=== PATIENT | female | born 1945 | race Caucasian/White ===

== ENCOUNTER 2016-06-03 11:10 | Inpatient (IN) | payer MEDICARE, BC ==
[~2016-06-03] VITALS: Ht 170.2 cm; Wt 80.8 kg
[2016-06-03] MEDS ORDERED: ASPIRIN 81 MG CHEW TAB ONE (11:32)
[2016-06-03] MEDS ORDERED: ONDANSETRON 4 MG VIAL ONE (11:32)
[2016-06-03] MEDS ORDERED: ALU/MAG/SIM 30 ML UDC ONE (11:32)
[2016-06-03] MEDS ORDERED: SODIUM CHLORIDE 0.9% 1,000 ML ONE (11:33)
[2016-06-03] MEDS ORDERED: LIDOCAINE 2% VISC 15 ML UDC ONE (11:33)
[2016-06-03] MEDS ORDERED: DILAUDID 1 MG/ML AMP ONE ×3 (11:33→16:38)
[2016-06-03] MEDS ORDERED: ASPIRIN 81 MG CHEW TAB PO STA (14:33)
[2016-06-03] MEDS ORDERED: ACETAMINOPHEN 325 MG TAB PO PRN (14:35)
[2016-06-03] MEDS ORDERED: SALINE FLUSH 10 ML FLUSH PRN (14:35)
[2016-06-03] MEDS ORDERED: ALU/MAG/SIM 30 ML UDC PO PRN (14:35)
[2016-06-03] MEDS ORDERED: LORAZEPAM 0.5 MG TAB PO PRN (14:35)
[2016-06-03] MEDS ORDERED: DOCUSATE SOD 100 MG CAP PO PRN (14:35)
[2016-06-03 17:42] VITALS: BP_SYST 100; BP_SYST 98; RESP 16; TEMP 97.5
[2016-06-03 18:20] VITALS: Ht 170.2 cm; Wt 80.8 kg
[2016-06-03] MEDS ORDERED: ONDANSETRON 4 MG TAB PO PRN (18:35)
[2016-06-03] MEDS ORDERED: PROCHLORPERAZINE 5 MG TAB PO PRN (18:35)
[2016-06-03 20:05] VITALS: BP_SYST 87; BP_SYST 90; RESP 16
[2016-06-03 20:06] VITALS: TEMP 97.9
[2016-06-03] MEDS: SALINE FLUSH 10 ML FLUSH SCH (20:25)
[2016-06-03] MEDS: SERTRALINE 50 MG TAB PO SCH (20:25)
[2016-06-03] MEDS: Atorvastatin 20 MG TAB PO SCH (20:25)
[2016-06-03] MEDS: ALLOPURINOL 100 MG TAB PO SCH (20:25)
[2016-06-03] MEDS: SODIUM CHLORIDE 0.9% 1,000 ML IV SCH (21:51)
[2016-06-03] MEDS: MORPHINE 2 MG/ML SYR IV PRN (21:56)
[2016-06-03 23:22] VITALS: BP_SYST 96; RESP 16; TEMP 98.4
[2016-06-04] VITALS (10 sets, daily range): BP systolic 93–114; RESP 18–20; TEMP 97.6–100.4
[2016-06-04] MEDS: MORPHINE 2 MG/ML SYR IV PRN ×4 (02:17→19:51)
[2016-06-04] MEDS: SODIUM CHLORIDE 0.9% FLUSH BAG 500 ML IV SCH ×2 (06:00→19:31)
[2016-06-04] MEDS: SODIUM CHLORIDE 0.9% 1,000 ML IV SCH (06:33)
[2016-06-04] MEDS: PANTOPRAZOLE 40 MG TAB PO SCH (06:33)
[2016-06-04] MEDS: LEVOTHYROXINE 0.15 MG TAB PO SCH (06:33)
[2016-06-04] MEDS: ONDANSETRON 4 MG VIAL IV PRN ×2 (06:45→08:43)
[2016-06-04] MEDS: CEFTRIAXONE 2 GM in SODIUM CHLORIDE 0.9% 50 ML IV SCH (08:44)
[2016-06-04] MEDS: SOLIFENACIN 5 MG TAB PO SCH (08:45)
[2016-06-04] MEDS: ALLOPURINOL 100 MG TAB PO SCH ×2 (08:46→20:56)
[2016-06-04] MEDS: ASPIRIN 81 MG CHEW TAB PO SCH (08:46)
[2016-06-04] MEDS: SERTRALINE 50 MG TAB PO SCH ×2 (08:46→20:56)
[2016-06-04] MEDS: SALINE FLUSH 10 ML FLUSH SCH ×2 (08:46→20:00)
[2016-06-04] MEDS ORDERED: PROMETHAZINE 25 MG/ML VIAL IV PRN (10:20)
[2016-06-05] VITALS (12 sets, daily range): BP systolic 90–123; RESP 18–20; TEMP 97.6–100.2
[2016-06-05] MEDS: SODIUM CHLORIDE 0.9% FLUSH BAG 500 ML IV SCH (06:00)
[2016-06-05] MEDS: PANTOPRAZOLE 40 MG TAB PO SCH (06:37)
[2016-06-05] MEDS: LEVOTHYROXINE 0.15 MG TAB PO SCH (06:37)
[2016-06-05] MEDS: SALINE FLUSH 10 ML FLUSH SCH ×2 (08:00→21:56)
[2016-06-05] MEDS ORDERED: SODIUM CHLORIDE 0.9% 250 ML IV ONE (08:25)
[2016-06-05] MEDS ORDERED: MISSING DOSE XX ONE (09:35)
[2016-06-05] MEDS: SERTRALINE 50 MG TAB PO SCH ×2 (09:38→21:56)
[2016-06-05] MEDS: CEFTRIAXONE 2 GM in SODIUM CHLORIDE 0.9% 50 ML IV SCH (09:38)
[2016-06-05] MEDS: SOLIFENACIN 5 MG TAB PO SCH (09:38)
[2016-06-05] MEDS: ALLOPURINOL 100 MG TAB PO SCH ×2 (09:38→21:56)
[2016-06-05] MEDS: ASPIRIN 81 MG CHEW TAB PO SCH (10:34)
[2016-06-05] MEDS: ONDANSETRON 4 MG VIAL IV PRN (10:34)
[2016-06-05] MEDS: NYSTATIN SUSP FOR CPD 120 ML, DIPHENHYDRAMINE (FOR COMPOUND) 120 ML, HYDROCORT SOD SUC ... SWISH.SWAL SCH ×9 (13:00→21:00)
[2016-06-05] MEDS ORDERED: PHARMACY TO DOSE VANCOMYCIN IV SCH (21:55)
[2016-06-05] MEDS ORDERED: PHARMACY TO DOSE CEFEPIME IV SCH (21:55)
[2016-06-05] MEDS: SODIUM CHLORIDE 0.9% 1,000 ML IV SCH (21:55)
[2016-06-05] MEDS: Atorvastatin 20 MG TAB PO SCH (21:56)
[2016-06-05] MEDS ORDERED: VANCOMYCIN 1,500 MG in SODIUM CHLORIDE 0.9% 250 ML IV ONE (22:10)
[2016-06-05] MEDS ORDERED: CEFEPIME 2000 MG/100 ML D5W 100 ML IV SCH (23:00)
[2016-06-06] VITALS (13 sets, daily range): BP systolic 100–118; RESP 18–24; TEMP 96.4–98.9
[2016-06-06] MEDS: SODIUM CHLORIDE 0.9% FLUSH BAG 500 ML IV SCH ×2 (03:42)
[2016-06-06] MEDS: PANTOPRAZOLE 40 MG TAB PO SCH (06:41)
[2016-06-06] MEDS: LEVOTHYROXINE 0.15 MG TAB PO SCH (06:41)
[2016-06-06] MEDS: ONDANSETRON 4 MG VIAL IV PRN ×2 (07:54→16:41)
[2016-06-06] MEDS: SALINE FLUSH 10 ML FLUSH SCH ×2 (08:32→20:00)
[2016-06-06] MEDS: ALLOPURINOL 100 MG TAB PO SCH ×2 (08:33→20:11)
[2016-06-06] MEDS: SOLIFENACIN 5 MG TAB PO SCH (08:33)
[2016-06-06] MEDS: SERTRALINE 50 MG TAB PO SCH ×2 (08:33→20:11)
[2016-06-06] MEDS: CEFEPIME 2000 MG/100 ML D5W 100 ML IV SCH ×2 (08:33→20:11)
[2016-06-06] MEDS: NYSTATIN SUSP FOR CPD 120 ML, DIPHENHYDRAMINE (FOR COMPOUND) 120 ML, HYDROCORT SOD SUC ... SWISH.SWAL SCH ×12 (08:34→20:11)
[2016-06-06] MEDS: SODIUM CHLORIDE 0.9% 1,000 ML IV SCH ×2 (10:31→21:51)
[2016-06-06] MEDS: VANCOMYCIN 1,250 MG in SODIUM CHLORIDE 0.9% 250 ML IV SCH (23:01)
[2016-06-07] VITALS (12 sets, daily range): BP systolic 112–156; RESP 16–20; TEMP 96.9–98.7
[2016-06-07] MEDS: SODIUM CHLORIDE 0.9% FLUSH BAG 500 ML IV SCH ×2 (05:55→05:56)
[2016-06-07] MEDS: PANTOPRAZOLE 40 MG TAB PO SCH (05:58)
[2016-06-07] MEDS: LEVOTHYROXINE 0.15 MG TAB PO SCH (05:58)
[2016-06-07] MEDS: SALINE FLUSH 10 ML FLUSH SCH ×2 (08:00→22:05)
[2016-06-07] MEDS ORDERED: SODIUM CHLORIDE 0.9% 1,000 ML IV SCH (08:05)
[2016-06-07] MEDS: NYSTATIN SUSP FOR CPD 120 ML, DIPHENHYDRAMINE (FOR COMPOUND) 120 ML, HYDROCORT SOD SUC ... SWISH.SWAL SCH ×12 (08:17→22:04)
[2016-06-07] MEDS: SERTRALINE 50 MG TAB PO SCH ×2 (08:17→22:05)
[2016-06-07] MEDS: SOLIFENACIN 5 MG TAB PO SCH (08:17)
[2016-06-07] MEDS: CEFEPIME 2000 MG/100 ML D5W 100 ML IV SCH ×2 (08:18→22:04)
[2016-06-07] MEDS: ALLOPURINOL 100 MG TAB PO SCH ×2 (08:18→22:10)
[2016-06-07] MEDS: METOPROLOL XL 25 MG TAB PO SCH (10:34)
[2016-06-07] MEDS ORDERED: Furosemide 20 MG TAB PO ONE (19:05)
[2016-06-07] MEDS: Atorvastatin 20 MG TAB PO SCH (22:05)
[2016-06-07] MEDS: VANCOMYCIN 1,250 MG in SODIUM CHLORIDE 0.9% 250 ML IV SCH (23:26)
[2016-06-08] VITALS (7 sets, daily range): BP systolic 115–136; RESP 16–20; TEMP 96.8–98.5
[2016-06-08] MEDS: SODIUM CHLORIDE 0.9% FLUSH BAG 500 ML IV SCH ×2 (03:51)
[2016-06-08] MEDS: PANTOPRAZOLE 40 MG TAB PO SCH (06:26)
[2016-06-08] MEDS: LEVOTHYROXINE 0.15 MG TAB PO SCH (06:26)
[2016-06-08] MEDS: NYSTATIN SUSP FOR CPD 120 ML, DIPHENHYDRAMINE (FOR COMPOUND) 120 ML, HYDROCORT SOD SUC ... SWISH.SWAL SCH ×15 (09:13→21:27)
[2016-06-08] MEDS: CEFEPIME 2000 MG/100 ML D5W 100 ML IV SCH ×2 (09:13→21:25)
[2016-06-08] MEDS: SALINE FLUSH 10 ML FLUSH SCH ×2 (09:13→21:24)
[2016-06-08] MEDS: SOLIFENACIN 5 MG TAB PO SCH (09:14)
[2016-06-08] MEDS: SERTRALINE 50 MG TAB PO SCH ×2 (09:14→21:24)
[2016-06-08] MEDS: ALLOPURINOL 100 MG TAB PO SCH ×2 (09:14→21:24)
[2016-06-08] MEDS: METOPROLOL XL 25 MG TAB PO SCH (09:14)
[2016-06-08] MEDS: KCL CR 20 MEQ TAB PO ONE ×3 (11:45→13:33)
[2016-06-08] MEDS: LORAZEPAM 0.5 MG TAB PO PRN (21:24)
[2016-06-08] MEDS: KCL CR 20 MEQ TAB PO SCH (21:25)
[2016-06-08] MEDS ORDERED: MISSING DOSE XX ONE (21:40)
[2016-06-09] VITALS (16 sets, daily range): BP systolic 108–133; RESP 18–20; TEMP 96.7–98.9
[2016-06-09] MEDS: VANCOMYCIN 1,250 MG in SODIUM CHLORIDE 0.9% 250 ML IV SCH (03:08)
[2016-06-09] MEDS: SODIUM CHLORIDE 0.9% FLUSH BAG 500 ML IV SCH ×2 (06:00→06:06)
[2016-06-09] MEDS: LEVOTHYROXINE 0.15 MG TAB PO SCH (06:07)
[2016-06-09] MEDS: PANTOPRAZOLE 40 MG TAB PO SCH (06:07)
[2016-06-09] MEDS: SERTRALINE 50 MG TAB PO SCH ×2 (09:05→21:37)
[2016-06-09] MEDS: SOLIFENACIN 5 MG TAB PO SCH (09:05)
[2016-06-09] MEDS: SALINE FLUSH 10 ML FLUSH SCH ×2 (09:05→20:54)
[2016-06-09] MEDS: ALLOPURINOL 100 MG TAB PO SCH ×2 (09:05→21:38)
[2016-06-09] MEDS: CEFEPIME 2000 MG/100 ML D5W 100 ML IV SCH ×2 (09:06→21:00)
[2016-06-09] MEDS: METOPROLOL XL 25 MG TAB PO SCH (09:06)
[2016-06-09] MEDS: KCL CR 20 MEQ TAB PO SCH (09:06)
[2016-06-09] MEDS: NYSTATIN SUSP FOR CPD 120 ML, DIPHENHYDRAMINE (FOR COMPOUND) 120 ML, HYDROCORT SOD SUC ... SWISH.SWAL SCH ×12 (09:07→21:37)
[2016-06-09] MEDS ORDERED: MISSING DOSE XX ONE ×2 (13:30→21:10)
[2016-06-09] MEDS ORDERED: ACETAMINOPHEN 325 MG TAB PO SCH (14:35)
[2016-06-09] MEDS: ACETAMINOPHEN 500 MG TAB PO SCH (16:28)
[2016-06-09] MEDS: ONDANSETRON 4 MG VIAL IV PRN (18:35)
[2016-06-09] MEDS ORDERED: KCL 20 MEQ/15 ML UDC PO SCH (21:00)
[2016-06-09] MEDS: TRAZODONE 50 MG TAB PO SCH (21:37)
[2016-06-09] MEDS: LORAZEPAM 0.5 MG TAB PO PRN (21:37)
[2016-06-09] MEDS: Atorvastatin 20 MG TAB PO SCH (21:38)
[2016-06-10] VITALS (23 sets, daily range): BP systolic 101–165; RESP 18–24; TEMP 96.4–98.9
[2016-06-10] MEDS: ACETAMINOPHEN 500 MG TAB PO SCH ×3 (00:30→16:30)
[2016-06-10] MEDS: SODIUM CHLORIDE 0.9% FLUSH BAG 500 ML IV SCH ×2 (06:00→06:58)
[2016-06-10] MEDS: PANTOPRAZOLE 40 MG TAB PO SCH (06:58)
[2016-06-10] MEDS: LEVOTHYROXINE 0.15 MG TAB PO SCH (06:59)
[2016-06-10] MEDS ORDERED: CALCIUM CHLORIDE 1,000 MG in SODIUM CHLORIDE 0.9% 100 ML IV ONE (07:40)
[2016-06-10] MEDS: SALINE FLUSH 10 ML FLUSH SCH ×2 (08:15→20:47)
[2016-06-10] MEDS ORDERED: MISSING DOSE XX ONE ×2 (08:20→08:25)
[2016-06-10] MEDS: CEFEPIME 2000 MG/100 ML D5W 100 ML IV SCH (08:29)
[2016-06-10] MEDS: KCL 20 MEQ/15 ML UDC PO SCH ×3 (09:21→21:55)
[2016-06-10] MEDS: SERTRALINE 50 MG TAB PO SCH ×2 (09:22→21:55)
[2016-06-10] MEDS: NYSTATIN SUSP FOR CPD 120 ML, DIPHENHYDRAMINE (FOR COMPOUND) 120 ML, HYDROCORT SOD SUC ... SWISH.SWAL SCH ×12 (09:22→21:51)
[2016-06-10] MEDS: METOPROLOL XL 25 MG TAB PO SCH (09:22)
[2016-06-10] MEDS: SOLIFENACIN 5 MG TAB PO SCH (09:22)
[2016-06-10] MEDS: ALLOPURINOL 100 MG TAB PO SCH ×2 (09:22→21:55)
[2016-06-10] MEDS ORDERED: PHARMACY TO DOSE LEVAQUIN IV SCH (12:05)
[2016-06-10] MEDS: SACCHA BOULARDII 250MG CAP PO SCH ×3 (15:34→21:55)
[2016-06-10] MEDS: LEVOFLOXACIN 750 MG TAB PO SCH (15:34)
[2016-06-10] MEDS: Amoxicillin Tr 500 MG CAP PO SCH ×2 (17:29→21:55)
[2016-06-10] MEDS: MORPHINE 2 MG/ML SYR IV PRN (20:52)
[2016-06-10] MEDS: ONDANSETRON 4 MG VIAL IV PRN (21:50)
[2016-06-10] MEDS: TRAZODONE 50 MG TAB PO SCH (21:55)
[2016-06-11] VITALS (8 sets, daily range): BP systolic 105–151; RESP 18; TEMP 97.6–98.6
[2016-06-11] MEDS: ACETAMINOPHEN 500 MG TAB PO SCH ×3 (01:00→16:30)
[2016-06-11] MEDS: SODIUM CHLORIDE 0.9% FLUSH BAG 500 ML IV SCH ×2 (05:59)
[2016-06-11] MEDS: PANTOPRAZOLE 40 MG TAB PO SCH (06:35)
[2016-06-11] MEDS: LEVOTHYROXINE 0.15 MG TAB PO SCH (06:35)
[2016-06-11] MEDS: SALINE FLUSH 10 ML FLUSH SCH ×2 (08:38→20:00)
[2016-06-11] MEDS: SACCHA BOULARDII 250MG CAP PO SCH ×3 (08:55→21:48)
[2016-06-11] MEDS: ALLOPURINOL 100 MG TAB PO SCH ×2 (08:56→21:48)
[2016-06-11] MEDS: SERTRALINE 50 MG TAB PO SCH ×2 (08:56→21:48)
[2016-06-11] MEDS: SOLIFENACIN 5 MG TAB PO SCH ×2 (08:56→09:00)
[2016-06-11] MEDS: METOPROLOL XL 25 MG TAB PO SCH (08:56)
[2016-06-11] MEDS: NYSTATIN SUSP FOR CPD 120 ML, DIPHENHYDRAMINE (FOR COMPOUND) 120 ML, HYDROCORT SOD SUC ... SWISH.SWAL SCH ×15 (08:56→21:48)
[2016-06-11] MEDS: LORAZEPAM 0.5 MG TAB PO PRN (08:56)
[2016-06-11] MEDS: KCL 20 MEQ/15 ML UDC PO SCH ×2 (08:57→21:45)
[2016-06-11] MEDS: Amoxicillin Tr 500 MG CAP PO SCH ×3 (09:00→21:48)
[2016-06-11] MEDS ORDERED: LEVOFLOXACIN 750 MG TAB PO SCH (09:00)
[2016-06-11] MEDS: Atorvastatin 20 MG TAB PO SCH (21:48)
[2016-06-11] MEDS: TRAZODONE 50 MG TAB PO SCH (21:49)
[2016-06-12] MEDS: ACETAMINOPHEN 500 MG TAB PO SCH ×2 (00:30→09:27)
[2016-06-12 00:32] VITALS: BP_SYST 126; RESP 18; TEMP 98.6
[2016-06-12 03:30] VITALS: BP_SYST 128; RESP 18; TEMP 98.6
[2016-06-12] MEDS: SODIUM CHLORIDE 0.9% FLUSH BAG 500 ML IV SCH ×2 (05:47)
[2016-06-12 07:57] VITALS: BP_SYST 109; RESP 18; TEMP 98.5
[2016-06-12] MEDS: KCL 20 MEQ/15 ML UDC PO SCH (09:22)
[2016-06-12] MEDS: NYSTATIN SUSP FOR CPD 120 ML, DIPHENHYDRAMINE (FOR COMPOUND) 120 ML, HYDROCORT SOD SUC ... SWISH.SWAL SCH ×6 (09:22→13:00)
[2016-06-12] MEDS: Amoxicillin Tr 500 MG CAP PO SCH (09:22)
[2016-06-12] MEDS: SERTRALINE 50 MG TAB PO SCH (09:22)
[2016-06-12] MEDS: SOLIFENACIN 5 MG TAB PO SCH (09:22)
[2016-06-12] MEDS: PANTOPRAZOLE 40 MG TAB PO SCH (09:22)
[2016-06-12] MEDS: LEVOTHYROXINE 0.15 MG TAB PO SCH (09:22)
[2016-06-12] MEDS: LEVOFLOXACIN 750 MG TAB PO SCH (09:23)
[2016-06-12] MEDS: METOPROLOL XL 25 MG TAB PO SCH (09:23)
[2016-06-12] MEDS: ALLOPURINOL 100 MG TAB PO SCH (09:23)
[2016-06-12] MEDS: SACCHA BOULARDII 250MG CAP PO SCH (09:23)
[2016-06-12] MEDS: SALINE FLUSH 10 ML FLUSH SCH (09:27)
[2016-06-12 09:34] VITALS: BP_SYST 109; RESP 18; TEMP 98.5
[2016-06-12] MEDS: MAGNESIUM SULF 1 GM/100 ML 100 ML IV SCH ×3 (10:18→12:39)
[2016-06-12 12:18] VITALS: BP_SYST 114; RESP 18; TEMP 97.9
[2016-06-12] MEDS ORDERED: MISSING DOSE XX ONE (13:35)
== END 2016-06-12 13:55 | disposition home or self-care (01) | DRG 808 ==
LOC: ENRESERVDT → ENRESERVTM → ER 11:10 → EMR 14:33 → PCU2 17:22 → OBSVTOIN 06-04 11:46 → ENPENDDIS 06-04 11:46
PROVIDERS: ADMIT Family Medicine; ATTEND Family Medicine
CPT/HCPCS: 36415; 36430; 71010; 78582; 80048; 80053; 80061; 80202; 81001; 82040; 82550; 82553; 83605; 83690; 83735; 84100; 84145; 84484; 85007; 85014; 85018; 85025; 85027; 85610; 85730; 86850; 86900; 86901; 86923; 86945; 87040; 87077; 87088; 87186; 87804; 93005; 93306; 94799; 96361; 96374; 96376; 99220; 99232; 99233; 99239; 99255

== ENCOUNTER 2016-07-06 15:11 | Observation (INO) | payer MEDICARE, BC ==
[~2016-07-06] VITALS: Ht 170.2 cm; Wt 81.9 kg
[2016-07-06] MEDS ORDERED: ASPIRIN 81 MG CHEW TAB ONE (15:56)
[2016-07-06] MEDS ORDERED: MAGNESIUM SULF (ER) 100 ML IV ONE ×2 (17:05→17:58)
[2016-07-06 19:56] VITALS: BP_SYST 113; BP_SYST 117; RESP 20; TEMP 97.2
[2016-07-06 19:57] VITALS: Ht 170.2 cm; Wt 81.9 kg
[2016-07-06] MEDS ORDERED: TRAZODONE 50 MG TAB PO SCH (21:00)
[2016-07-06] MEDS ORDERED: Atorvastatin 20 MG TAB PO SCH (21:00)
[2016-07-06] MEDS ORDERED: SALINE FLUSH 10 ML FLUSH PRN (21:15)
[2016-07-06] MEDS ORDERED: SODIUM CHLORIDE 0.9% FLUSH BAG 500 ML IV PRN (21:15)
[2016-07-06] MEDS ORDERED: NITROGLYCERIN 50 MG/250 ML IV PRN (21:15)
[2016-07-06] MEDS ORDERED: MORPHINE 2 MG/ML SYR IV PRN (21:15)
[2016-07-06] MEDS ORDERED: NITROGLYCERIN SL 0.4 MG TAB SL PRN (21:15)
[2016-07-06] MEDS: ALLOPURINOL 100 MG TAB PO SCH (21:42)
[2016-07-06] MEDS: SERTRALINE 50 MG TAB PO SCH (21:42)
[2016-07-06 21:49] VITALS: BP_SYST 94; RESP 22; TEMP 97.3
[2016-07-06 23:00] VITALS: BP_SYST 97; RESP 18; TEMP 98.9
[2016-07-07] MEDS: NITROGLYCERIN 2% OINT 1 INCH PKT TOPICAL SCH ×3 (00:52→12:00)
[2016-07-07 03:21] VITALS: BP_SYST 110; RESP 18; TEMP 97.5
[2016-07-07] MEDS ORDERED: SALINE FLUSH 10 ML FLUSH SCH (08:00)
[2016-07-07 08:23] VITALS: BP_SYST 123; RESP 19; TEMP 97.3
[2016-07-07] MEDS: SERTRALINE 50 MG TAB PO SCH (08:35)
[2016-07-07] MEDS: ALLOPURINOL 100 MG TAB PO SCH ×2 (08:35→08:36)
[2016-07-07] MEDS ORDERED: MAGNESIUM SULF 1 GM/100 ML 100 ML IV ONE (10:45)
[2016-07-07 11:44] VITALS: BP_SYST 112; RESP 18; TEMP 97.3
[2016-07-07 13:10] VITALS: BP_SYST 112; RESP 18; TEMP 97.3
== END 2016-07-07 07:59 | disposition home or self-care (01) ==
LOC: ENRESERVTM → ENRESERVDT → ER 15:11 → EMR 16:53 → ENPENDDIS 16:53 → PCU2 19:19
PROVIDERS: ADMIT Internal Medicine Cardiovascular Disease; ATTEND Internal Medicine Cardiovascular Disease
DX: R07.2 Precordial pain (principal); C34.90 Malignant neoplasm of unspecified part of unspecified bronchus or lung; I31.4 Cardiac tamponade; E83.42 Hypomagnesemia; N18.2 Chronic kidney disease, stage 2 (mild); E03.9 Hypothyroidism, unspecified; K21.9 Gastro-esophageal reflux disease without esophagitis; K58.9 Irritable bowel syndrome, unspecified; M10.9 Gout, unspecified; Z87.891 Personal history of nicotine dependence
CPT/HCPCS: 36415; 71010; 80053; 80061; 82550; 82553; 83735; 84484; 85025; 85610; 85730; 93005; 96374; 96376; 99285; G0378